=== PATIENT | male | born 1975 | race Caucasian/White ===

== ENCOUNTER 2022-09-29 13:21 | Emergency (ER) | payer OTHER, MEDICAID ==
[2022-09-29] MEDS ORDERED: Ketorolac 30 MG/ML SDV IM ONE (13:36)
== END 2022-09-29 16:30 | disposition home or self-care (01) ==
LOC: JP.ED 13:21
DX: S16.1XXA Strain of muscle, fascia and tendon at neck level, initial encounter (principal); S90.31XA Contusion of right foot, initial encounter; S90.121A Contusion of right lesser toe(s) without damage to nail, initial encounter; S40.011A Contusion of right shoulder, initial encounter; Z79.899 Other long term (current) drug therapy; Z86.16 Personal history of COVID-19; V48.6XXA Car passenger injured in noncollision transport accident in traffic accident, initial encounter; Y92.410 Unspecified street and highway as the place of occurrence of the external cause
CPT/HCPCS: 72050; 73030; 73630; 96372; 99284; J1885